=== PATIENT | female | born 1975 | race African-American/Black ===

== ENCOUNTER 2024-06-23 18:51 | Emergency (ER) | payer MEDICAID ==
[~2024-06-23] VITALS: Ht 167.6 cm; Wt 85.0 kg
[2024-06-23 19:10] VITALS: TEMP 36.6; O2SAT 100
[2024-06-23] MEDS ORDERED: ACETAMINOPHEN 325MG TABLET PO STA (20:16)
[2024-06-23] MEDS ORDERED: BACITRACIN ZINC OINT UDPKT TOP ONE (20:30)
[2024-06-23] MEDS ORDERED: TETANUS, DIPHTHERIA, PERTUSSIS VAC/PF 0.5ML (>10YR OLD) IM ONE (20:30)
[2024-06-23] MEDS: LIDOCAINE HCL/PF 1% 10 MG/ML 5ML VIAL INFIL ONE (20:30)
[2024-06-23] MEDS: BACITRACIN ZINC OINT UDPKT TOP NR (20:30)
[2024-06-23] MEDS ORDERED: CEPH500C2 MT (22:23)
[2024-06-23] MEDS ORDERED: NAPR-1486 MT (22:23)
[2024-06-23] MEDS: ACETAMINOPHEN 325MG TABLET PO NR (22:40)
[2024-06-23] MEDS: TETANUS, DIPHTHERIA, PERTUSSIS VAC/PF 0.5ML (>10YR OLD) IM ONE (22:43)
[2024-06-23 23:03] VITALS: BP 165/90; PULSE 90; RESP 14; O2SAT 100
== END 2024-06-23 23:12 | disposition home or self-care (01) ==
LOC: ER 18:51
DX: S61.011A Laceration without foreign body of right thumb without damage to nail, initial encounter (principal); Z23 Encounter for immunization; W26.8XXA Contact with other sharp object(s), not elsewhere classified, initial encounter; Y93.89 Activity, other specified; Y92.89 Other specified places as the place of occurrence of the external cause; Y99.8 Other external cause status
CPT/HCPCS: 73140; 90715; 90471; 99283; J2003; Z7610